=== PATIENT | male | born 1970 | race Hispanic/Latino ===

== ENCOUNTER 2017-03-04 05:48 | Emergency (ER) | payer OTHER ==
--- NOTE | 2017-03-04 06:09 | C.PDOC ---
History Of Present Illness 46 year old male who presents to the ER after he fell, injured his right shoulder, and twisted his right knee [employer]. Patient was able to ambulate in the ER without difficulty and able to undress without difficulty. Denies weakness, numbness, head injury, or LOC. - HPI Chief Complaint (Nursing): Trauma History Per: Patient History/Exam Limitations: no limitations Onset/Duration Of Symptoms: Mins Injury Occurred (Timing): Just Before Arrival Location Of Injury: Right: Knee, Shoulder Recent travel outside of the [place]: No Past Medical History Reviewed: Historical Data, Nursing Documentation, Vital Signs Vital Signs: Last Vital Signs Temp 97.4 F L 03/04/17 05:48 Pulse 76 03/04/17 05:48 Resp 20 03/04/17 05:48 BP 136/89 03/04/17 05:48 Pulse Ox 95 03/04/17 06:15 - Medical History PMH: HTN Surgical History: No Surg Hx Family History: States: Unknown Family Hx - Social History Hx Alcohol Use: No Hx Substance Use: No - Immunization History Hx Tetanus Toxoid Vaccination: No Hx Influenza Vaccination: No Hx Pneumococcal Vaccination: No Review Of Systems Musculoskeletal: Positive for: Shoulder Pain, Leg Pain Neurological: Negative for: Weakness, Numbness Physical Exam - Physical Exam Appears: Non-toxic, No Acute Distress Skin: Normal Color, Warm, Dry Head: Atraumatic, Normacephalic Oral Mucosa: Moist Extremity: Normal ROM (x4), Tenderness (Right shoulder. Lateral aspect of right knee.), No Deformity, No Swelling Neurological/Psych: Oriented x3, Normal Speech, Normal Cognition ED Course And Treatment O2 Sat by Pulse Oximetry: 95 (Room air) Pulse Ox Interpretation: Normal Progress Note: Right knee x-ray and right shoulder x-ray ordered. Disposition Counseled Patient/Family Regarding: Diagnosis - Disposition Referrals: [facility] [Outside] Disposition Time: 06:52 Condition: STABLE Prescriptions: Naproxen [Naprosyn Tab] 375 mg PO TIDPC #20 tab Instructions: Contusion in Adults (DC) Forms: [facility] (Hungarian) - POA Present On Arrival: None - Clinical Impression Clinical Impression: Contusion - Scribe Statement The provider has reviewed the documentation as recorded by the Scribe Magdaleno Hunter All medical record entries made by the Scribe were at my direction and personally dictated by me. I have reviewed the chart and agree that the record accurately reflects my personal performance of the history, physical exam, medical decision making, and the department course for this patient. I have also personally directed, reviewed, and agree with the discharge instructions and disposition.
[2017-03-04] MEDS ORDERED: Naproxen 550 mg Tab PO STA (06:58)
[2017-03-04] MEDS ORDERED: Naproxen 275 mg Tab PO ONE (07:01)
[2017-03-04 07:13] VITALS: BP 142/90; PULSE 64; RESP 18; TEMP 98; O2SAT 99
--- NOTE | 2017-03-04 08:26 | RAD ---
PROCEDURE: Right Knee Radiographs. HISTORY: COMPARISON: None available. FINDINGS: Examination limited by habitus. BONES: No acute displaced fracture. Degenerative changes. JOINTS: No dislocation. Lateral compartment joint space narrowing. JOINT EFFUSION: No significant joint effusion. OTHER FINDINGS: None. IMPRESSION: No acute displaced fracture, dislocation, or significant joint effusion identified. If symptoms persist, or if there is continued clinical concern, x-ray follow-up in 7-10 days should be considered. Degenerative changes. Lateral compartment joint space narrowing.
--- NOTE | 2017-03-04 08:28 | RAD ---
PROCEDURE: Radiographs of the Right Shoulder HISTORY: injury COMPARISON: None available. FINDINGS: BONES: No acute displaced fracture. The distal clavicle and underlying ribs appear intact. JOINTS: No acute dislocation. SOFT TISSUES: Soft tissues appear unremarkable. No evidence of radiopaque foreign body. IMPRESSION: No acute displaced fracture or dislocation evident. If symptoms persist or if there is continued clinical concern, x-ray follow-up in 7-10 days should be considered.
== END 2017-03-04 07:13 | disposition home or self-care (01) ==
LOC: C.ER 05:48
DX: S40.011A Contusion of right shoulder, initial encounter (principal); S80.01XA Contusion of right knee, initial encounter; W19.XXXA Unspecified fall, initial encounter; Y93.89 Activity, other specified; Y92.89 Other specified places as the place of occurrence of the external cause